=== PATIENT | male | born 1940 | race Caucasian/White ===

== ENCOUNTER 2023-02-18 08:56 | Day surgery (SDC) | payer MEDICARE, BC ==
[~2023-02-18 08:56] MED LIST: Cefuroxime 10 MG/ML SYRINGE EYELF SCH; Lidocaine 1% PF 2 ML SDV INJECT SCH; Pilocarpine 4% Ophth Soln 15 ML Bot EYELF SCH
[2023-02-18] MEDS: Polymyxin B/Trimethoprim 10 ML Bottle EYELF SCH ×3 (09:52→11:44)
[2023-02-18] MEDS: Brimonidine 0.2% Ophth Soln 15 ML Bottle EYELF SCH ×3 (09:57→11:44)
[2023-02-18] MEDS: Phenylephrine 2.5% Opth Drops 10 mL EYELF SCH ×5 (09:59→11:19)
[2023-02-18] MEDS: Tropicamide 1% Ophth Soln 15 ML Bottle EYELF SCH ×4 (10:03→10:39)
[2023-02-18] MEDS ORDERED: Ondansetron 4 MG/2 ML SDV IVPUSH PRN (10:08)
[2023-02-18] MEDS: Tetracaine HCl/PF 0.5% 4 ML Bottle EYEBOTH SCH ×5 (10:45→11:28)
== END 2023-02-18 11:57 | disposition home or self-care (01) ==
LOC: JD.SDS 08:56
PROVIDERS: ATTEND Ophthalmology
DX: H25.813 Combined forms of age-related cataract, bilateral (principal); H35.3131 Nonexudative age-related macular degeneration, bilateral, early dry stage; H35.363 Drusen (degenerative) of macula, bilateral; H02.831 Dermatochalasis of right upper eyelid; H02.834 Dermatochalasis of left upper eyelid; H16.103 Unspecified superficial keratitis, bilateral; H16.223 Keratoconjunctivitis sicca, not specified as Sjogren's, bilateral; I10 Essential (primary) hypertension; E78.00 Pure hypercholesterolemia, unspecified; M10.9 Gout, unspecified; M19.90 Unspecified osteoarthritis, unspecified site; J45.909 Unspecified asthma, uncomplicated; C61 Malignant neoplasm of prostate; Z98.890 Other specified postprocedural states; Z87.891 Personal history of nicotine dependence; Z79.899 Other long term (current) drug therapy; Z79.82 Long term (current) use of aspirin
CPT/HCPCS: 66984; A9270; J0697; J3490; V2632

== ENCOUNTER → 2024-03-09 | Day surgery (SDC) | payer MEDICARE ==
[~2024-03-09] MED LIST changes: -Cefuroxime 10 MG/ML SYRINGE EYELF SCH; -Lidocaine 1% PF 2 ML SDV INJECT SCH; +Lidocaine 2% 5 ML SDV ONE; +Ondansetron 4 MG/2 ML SDV IVPUSH PRN; -Pilocarpine 4% Ophth Soln 15 ML Bot EYELF SCH; +Propofol 200 MG/20 ML SDV ONE; +Sodium Chloride 0.9% 10 ML Syringe FLUSH PRN; +Sodium Chloride 0.9% 10 ML Syringe FLUSH SCH; +fentaNYL 100 MCG/2 ML SDV IVPUSH PRN
[2024-03-09] MEDS: Lactated Ringers 1,000 ML IV SCH (07:00)
== END | disposition home or self-care (01) ==
LOC: JD.SDS 06:40
PROVIDERS: ATTEND Family Medicine
DX: Z12.11 Encounter for screening for malignant neoplasm of colon (principal); D12.2 Benign neoplasm of ascending colon; G57.31 Lesion of lateral popliteal nerve, right lower limb; S84.11XA Injury of peroneal nerve at lower leg level, right leg, initial encounter; C61 Malignant neoplasm of prostate; I25.119 Atherosclerotic heart disease of native coronary artery with unspecified angina pectoris; E78.00 Pure hypercholesterolemia, unspecified; G47.33 Obstructive sleep apnea (adult) (pediatric); Z79.899 Other long term (current) drug therapy; Z79.82 Long term (current) use of aspirin; Z87.891 Personal history of nicotine dependence; Z86.010 Personal history of colon polyps
CPT/HCPCS: 88305; J2704; J3490; J7120